=== PATIENT | male | born 1985 | race Caucasian/White ===

== ENCOUNTER 2020-06-12 13:44 | Outpatient (CLI) | payer OTHER, SELFPAY ==
[2020-06-12 15:11] LABS: SARS-CoV-2 Ag Negative (Negative)
== END 2020-06-12 13:45 | disposition home or self-care (01) ==
LOC: CHSLAB 13:46
PROVIDERS: PCP Family Medicine; Visit Provider Family Medicine
DX: Z20.828 Contact with and (suspected) exposure to other viral communicable diseases (principal)
CPT/HCPCS: 87426

== ENCOUNTER 2020-08-11 09:34 | Outpatient (CLI) | payer OTHER, SELFPAY ==
[2020-08-11 10:26] LABS: SARS-CoV-2 Ag Negative (Negative)
[2020-08-11 10:27] LABS: Influenza Control Valid (Valid)
[2020-08-12 00:37] LABS: SARS-CoV-2 RNA PCR Negative
== END 2020-08-11 09:35 | disposition home or self-care (01) ==
PROVIDERS: PCP Family Medicine; Visit Provider Family Medicine
DX: U07.1 COVID-19 (principal); J00 Acute nasopharyngitis [common cold]
CPT/HCPCS: 87426; 87804; 87880; C9803; U0003; U0005

== ENCOUNTER 2021-01-17 14:30 | Emergency (ER) | payer OTHER, SELFPAY ==
--- NOTE | ~2021-01-17 | CT_ITS ---
EXAMINATION: CT soft tissue neck w con DATE: 01/17/2021 15:56 INDICATION: Dysphagia. Right neck mass. TECHNIQUE: Computed tomography (CT) of the neck was performed with 75 mL Omnipaque-350 intravenous co ntrast. The dose-length product was 547.07 mGy-cm. Automated exposure control and iterative reconstru ction technique were employed. COMPARISON: None FINDINGS: There is a 17 mm lymph node just above the level of the palpable mass indicated by BB. The mucosal and parapharyngeal spaces are symmetric. Paranasal sinuses and mastoids are pneumatized. No a bnormal intracranial vascularity identified. Thyroid gland is unremarkable. Lung apices are normal. N o significant vascular abnormality. IMPRESSION: 1. Mild right cervical lymphadenopathy corresponding to the palpable finding, likely reactive. Reviewed, dictated and finalized at location A. IMPRESSION: 1. Mild right cervical lymphadenopathy corresponding to the palpable finding, l ikely reactive.
[2021-01-17 14:35] VITALS: BP 126/85; PULSE 86; RESP 17; TEMP 36.9; O2SAT 99
--- NOTE | 2021-01-17 14:59 | ED.NECK ---
HPI - Neck Pain/Injury General Chief Complaint: Upper Respiratory Infection Stated Complaint: lump in throat Time Seen by Provider: 01/17/21 14:40 Source: patient Mode of arrival: ambulatory Limitations: no limitations History of Present Illness HPI Narrative: Patient comes in after having several days of difficulty swallowing, and pain with swallowing. He has been seen by his primary care doctor before and treated for what was probably just felt to be some enlarged tender nodes in his right neck with amoxicillin. This seemed to help then. He has had a recurrent sense of a object, or fullness in the right neck and has had odynophagia, and dysphagia ongoing for the past few days, which seems to be increasing in severity over the past few weeks. Father has a history of throat cancer. MD complaint: neck pain Place: home Radiation: right lateral Severity: mild Quality: sharp Duration: other (over weeks) Relieving factors: none Exacerbating factors: swallowing Associated symptoms: none Treatments prior to arrival: other (he has purposely exposed himself to radiation at his job site with the hope that would help his neck feel better) Related Data Allergies Allergy/AdvReac Type Severity Reaction Status Date / Time Penicillins Allergy Mild Unverified 01/04/21 08:30 Review of Systems Constitutional: Constitutional: Reports no additional constitutional complaints Eyes: Eyes: Reports no additional eye complaints ENT: Reports system reviewed and no additional complaints, except as documented Cardiovascular: Cardiovascular: Reports no additional cardiovascular complaints Respiratory: Respiratory: Reports no additional respiratory complaints Gastrointestinal: Gastrointestinal: Reports no additional gastrointestinal complaints Genitourinary: Genitourinary: Reports no additional male genitourinary complaints Musculoskeletal: Musculoskeletal: Reports no additional musculoskeletal complaints Integumentary/Breasts: Skin/Breast: Reports system reviewed and no additional complaints, except as docu Neurologic: Reports system reviewed and no additional complaints, except as documented Psychiatric: Psychiatric: Reports no additional psychiatric complaints Endocrine: Endocrine: Reports no additional endocrine complaints Hematologic/Lymphatic: Hematologic/Lymphatic: Reports no additional hematologic/lymphatic complaints Allergic/Immunologic: Allergic/Immunologic: Reports no additional allergic/immunologic complaints [facility] Past Medical History Medical History (Updated 01/17/21 @ 16:24 by Mark Granda MD) No significant past medical history Surgical History Surgical History (Updated 01/17/21 @ 15:20 by Mark Granda MD) History of appendectomy Family History Family History (Updated 01/17/21 @ 15:20 by Mark Granda MD) Father Throat cancer Social History Social History (Updated 01/17/21 @ 15:21 by Mark Granda MD) Tobacco type: e-cigarettes/vaping Alcohol intake: current Alcohol use details: beer at times Gender identity (if verbalized by the patient): Male Sexual Orientation (if Verbalized by the Patient): Straight or Heterosexual Exam Const: General: no acute distress and alert Orientation/consciousness: patient oriented x3 HENMT: Head: normal to inspection and contusion Ears: external ears normal and TM's normal bilaterally General nose exam: Normal external nose present Mouth: Yes Normal oral and palatal mucosa present Throat: posterior oropharynx normal Eyes: Conjunctivae: conjunctivae normal Neck: Neck: normal visual inspection Carotids: normal carotid upstroke Other: He appears tender in the angle of the jaw below the mandible on the right side. I cannot feel any nodes in this area, or elsewhere on his head or neck. He appears to have pain with turning the neck to the left side. Chest: Chest palpation & inspection: normal inspection of the chest Resp: Effort & Inspection: normal
[2021-01-17 15:24] LABS: Basophils Absolute Auto 0.04 K/mm3 (0.00-0.10); Basophils Percent Auto 0.4 % (0.0-1.0); Eosinophils Absolute Auto 0.54 K/mm3 (0.02-0.50); Hemoglobin 14.6 g/dL (14.0-18.0); Immature Granulocyte Absolute 0.03 K/mm3 (0.00-0.00); Immature Granulocyte Percent A 0.3 % (0.0-0.0); Lymphocytes Absolute Auto 2.57 K/mm3 (1.10-4.50); Lymphocytes Percent Auto 28.3 % (18.0-42.0); Mean Corpuscular Hemoglobin 29.6 pg (27.0-31.0); Mean Platelet Volume 11.3 fl (8.7-11.0); Monocytes Absolute Auto 0.64 K/mm3 (0.10-0.90); Monocytes Percent Auto 7.1 % (2.0-11.0); Neutrophils Absolute Auto 5.3 K/mm3 (1.7-7.2); Neutrophils Percent Auto 57.9 % (50.0-70.0); Platelet Count Result 279 K/mm3 (150-420); Red Blood Count 4.94 M/mm3 (4.70-6.10); Red Cell Distribution Width 13.2 % (11.6-14.4); White Blood Count 9.1 K/mm3 (4.8-10.8)
[2021-01-17 15:41] LABS: Alanine Aminotransferase 89 U/L (16-63); Albumin Level 3.9 g/dL (3.4-5.0); Alkaline Phosphatase 59 U/L (46-116); Anion Gap 14 mmol/L (8-16); Aspartate Amino Transferase 35 U/L (15-37); Bilirubin,Total 0.6 mg/dL (0.00-1.00); Blood Urea Nitrogen 13 mg/dL (7-18); Calcium 8.9 mg/dL (8.5-10.1); Carbon Dioxide 24 mmol/L (21-32); Chloride 104 mmol/L (98-108); Estimated Glomerular Filt Rate > 60; Glucose 102 mg/dL (70-99); Osmolality Calculated 294 mOsm/kg (285-295); Potassium 4.1 mmol/L (3.5-5.1); Prothrombin Time 10.8 Seconds (9.50-12.10); Sodium 142 mmol/L (136-145); Total Protein 7.3 g/dL (6.4-8.2)
[2021-01-17] MEDS: AMOXICILLIN 500 MG CAPSULE PO (16:31)
[2021-01-17 16:35] VITALS: RESP 15
== END 2021-01-17 16:35 | disposition home or self-care (01) ==
PROVIDERS: Emergency Provider Emergency Medicine; PCP Family Medicine
DX: I88.9 Nonspecific lymphadenitis, unspecified (principal)
CPT/HCPCS: 36415; 70491; 80053; 85025; 85610; 85730; 99283; 99284; A9270; Q9967

== ENCOUNTER 2021-02-25 11:00 | Outpatient (CLI) | payer OTHER, SELFPAY ==
[2021-02-25 13:42] LABS: SARS-CoV-2 RNA PCR Negative (Negative)
== END 2021-02-25 11:01 | disposition home or self-care (01) ==
LOC: CHSLAB 11:02
PROVIDERS: PCP Family Medicine; Visit Provider Family Medicine
DX: Z20.822 Contact with and (suspected) exposure to COVID-19 (principal)
CPT/HCPCS: C9803; U0003; U0005

== ENCOUNTER 2021-03-05 13:49 | Inpatient (IN) | payer OTHER, SELFPAY ==
--- NOTE | ~2021-03-05 | CT_ITS ---
EXAMINATION: CTA chest PE protocol DATE: 03/05/2021 15:18 INDICATION: Severe shortness of breath. Elevated d-dimer. Covid-positive. Body aches. Headache. TECHNIQUE: Computed tomography angiography (CTA) of the chest was performed with 100 mL Omnipaque-350 intravenous contrast timed to evaluate the pulmonary arteries. Coronal maximum intensity projection 3D-reconstructions were created by the technologist. Automated exposure control and iterative reconst ruction technique were employed. Exam dose: 381.97 mGy-cm total exam DLP. COMPARISON: None. FINDINGS: There is diagnostic contrast enhancement of the pulmonary arteries and no evidence of pulmo nary embolism. Normal heart size. No pericardial effusion. No thoracic aortic aneurysm or dissection. Normal heart size. There is mild prominence of the hilar lymph nodes, likely reactive. There are scattered bilateral patchy groundglass infiltrates in the upper lobes, middle lobe and mor e prominent infiltrates in the lower lobes, particularly in the dependent aspect of the lower lobes. No pleural effusion. No suspicious osteolytic or osteoblastic lesions. IMPRESSION: No evidence of pulmonary embolism Bilateral multifocal pulmonary infiltrates, likely due to Covid 19 pneumonia Reviewed, dictated and finalized at [facility]. Reviewed, dictated and finalized at location A.
--- NOTE | ~2021-03-05 | XR_ITS ---
EXAMINATION: XR chest 1V portable EXAM DATE: 03/08/2021 10:36 INDICATION: Follow-up COVID pneumonia. TECHNIQUE: Portable AP frontal chest x-ray was obtained. Correlation is made to CT pulmonary scan 02/08. FINDINGS: Small to moderate amount of bilateral airspace disease, nonspecific by CT but given history probably COVID pneumonia. Probably no significant interval change correlating to recent chest CT. No pneumothorax or pleural effusion. Cardiomediastinal silhouette is normal. There are no osseous abnor malities identified. IMPRESSION: Moderate amount bilateral airspace disease. Reviewed, dictated and finalized at location B.
[2021-03-05 13:49] VITALS: BP 129/82; PULSE 112; RESP 11; TEMP 36.6; O2SAT 99
--- NOTE | 2021-03-05 13:55 | ECG_ITS ---
Measurements Intervals Slemp Rate: 105 P: 48 WY: 146 QRS: 7 QRSD: 92 T: 41 QT: 307 QTc: 406 Interpretive Statements SINUS TACHYCARDIA BORDERLINE ECG Electronically Signed On 03-05-2021 14:29:24 CDT by Kimani Navarro D.O.
[2021-03-05 14:24] LABS: Base Excess ABG 0.8 mmol/L (0-2); HCO3 ABG 23.4 mmol/L (23-29); Oxygen Content ABG 19.8 %vol (16.0-22.0); Oxygen Saturation ABG 98.5 % (95-97); Oxyhemoglobin 97.8 % (94-100); PCO2 ABG 31.8 mmHg (35-45); PO2 ABG 142.2 mmHg (80-90); Total Hemoglobin 14.2 g/dL (12.0-18.0); pH ABG 7.49 (7.35-7.45)
[2021-03-05 14:25] LABS: Basophils Absolute Auto 0.01 K/mm3 (0.00-0.10); Basophils Percent Auto 0.2 % (0.0-1.0); Hematocrit 40.1 % (40.0-54.0); Hemoglobin 13.3 g/dL (14.0-18.0); Immature Granulocyte Absolute 0.01 K/mm3 (0.00-0.00); Immature Granulocyte Percent A 0.2 % (0.0-0.0); Lymphocytes Percent Auto 17.3 % (18.0-42.0); Mean Corpuscular HGB Conc 33.2 g/dL (32.0-36.0); Mean Corpuscular Hemoglobin 28.9 pg (27.0-31.0); Mean Corpuscular Volume 87.2 fL (78.0-102.0); Mean Platelet Volume 10.3 fl (8.7-11.0); Monocytes Absolute Auto 0.19 K/mm3 (0.10-0.90); Monocytes Percent Auto 4.7 % (2.0-11.0); Neutrophils Absolute Auto 3.1 K/mm3 (1.7-7.2); Neutrophils Percent Auto 77.6 % (50.0-70.0); Platelet Count Result 137 K/mm3 (150-420); Red Cell Distribution Width 12.9 % (11.6-14.4)
[2021-03-05 14:26] LABS: Device NON-REBREATHER MASK; Modified Allen's Test Pass; Site Drawn RIGHT RADIAL
--- NOTE | 2021-03-05 14:26 | ED.GENADULT ---
HPI - General Adult General Chief complaint: Upper Respiratory Infection Stated complaint: Ambulance Source: patient Mode of arrival: ambulatory Limitations: no limitations History of Present Illness HPI narrative: Gautam is a previously healthy 36M that was brought to the ED today with SOB. He was diagnosed with COVID 7 days ago and had only mild symptoms at that time (headache, body aches fatigue, sore throat). However, today all of a sudden he had severe SOB. He denies CP, syncope, N/V, and abdominal pain but admits fever and aches. Related Data Home Medications Medication Instructions Recorded Confirmed No Home Medications 03/05/21 03/05/21 Allergies Allergy/AdvReac Type Severity Reaction Status Date / Time Penicillins Allergy Mild Unknown Verified 03/05/21 16:46 Review of Systems Constitutional: Constitutional: Reports as per HPI Eyes: Eyes: Reports no additional eye complaints ENT: Reports as per HPI Cardiovascular: Cardiovascular: Reports as per HPI Respiratory: Respiratory: Reports as per HPI Gastrointestinal: Gastrointestinal: Reports no additional gastrointestinal complaints Genitourinary: Genitourinary: Reports no additional male genitourinary complaints Musculoskeletal: Musculoskeletal: Reports myalgias Integumentary/Breasts: Skin/Breast: Reports system reviewed and no additional complaints, except as docu Neurologic: Reports system reviewed and no additional complaints, except as documented Psychiatric: Psychiatric: Reports no additional psychiatric complaints Endocrine: Endocrine: Reports no additional endocrine complaints Hematologic/Lymphatic: Hematologic/Lymphatic: Reports no additional hematologic/lymphatic complaints Allergic/Immunologic: Allergic/Immunologic: Reports no additional allergic/immunologic complaints [facility] Past Medical History Medical History No significant past medical history Surgical History Surgical History History of appendectomy Family History Family History Father Throat cancer Social History Social History Smoking status: Never smoker Tobacco type: e-cigarettes/vaping Second hand tobacco smoke exposure: No Alcohol intake: unknown Alcohol use details: beer at times Substance use: unknown Gender identity (if verbalized by the patient): Male Sexual Orientation (if Verbalized by the Patient): Straight or Heterosexual Spiritual care concerns: No Exam Const: General: alert; No confusion Orientation/consciousness: patient oriented x3 Other: Moderate distress HENMT: Head: normal to inspection Mouth: Yes Normal oral and palatal mucosa present Other: atraumatic Eyes: Conjunctivae: conjunctivae normal Pupils: Equal, round and reactive pupils present EOM: EOMs intact bilaterally Neck: Neck: normal visual inspection Chest: Chest palpation & inspection: normal inspection of the chest Resp: Effort & Inspection: labored, no retractions, tachypneic and uses accessory muscles Auscultation: clear to auscultation bilaterally Cardio: Rate: tachycardic Rhythm: regular rhythm Heart sounds: no murmurs GI: Inspection: non-distended GI Palp: Yes Soft to palpation, No Tenderness to palpation present (GI) and No Guarding due to palpation present (GI) Back/Spine/Pelvis: Back: no CVA tenderness Skin: General skin exam: normal color Rashes: no rashes Neuro: General: patient oriented x3 and moves all extremities Psych: Appearance: grossly normal Mental Status: mental status grossly normal Thought content: Yes Normal thought content present Course Course Emergency Course: Gautam was evaluated. Ordered labs, CT and EKG. He is satting int he 90's on 12L non-rebreather but is now on 7L NC satting 97%. EKG s
[2021-03-05 14:36] LABS: INR 1.1; Prothrombin Time 11.3 Seconds (9.50-12.10)
[2021-03-05 14:40] LABS: Lactic Acid Reflex 2.2 mmol/L (0.4-2.0)
[2021-03-05 14:48] LABS: Alanine Aminotransferase 52 U/L (16-63); Albumin Level 3.3 g/dL (3.4-5.0); Alkaline Phosphatase 42 U/L (46-116); Anion Gap 11 mmol/L (8-16); Aspartate Amino Transferase 34 U/L (15-37); Bilirubin,Total 0.2 mg/dL (0.00-1.00); Blood Urea Nitrogen 13 mg/dL (7-18); Calcium 8.5 mg/dL (8.5-10.1); Carbon Dioxide 23 mmol/L (21-32); Chloride 105 mmol/L (98-108); Estimated Glomerular Filt Rate > 60; Glucose 137 mg/dL (70-99); NT Pro B Type Natriuretic Pept 33 pg/mL (0-125); Osmolality Calculated 290 mOsm/kg (285-295); Potassium 3.9 mmol/L (3.5-5.1); Sodium 139 mmol/L (136-145)
[2021-03-05 14:49] LABS: CRP 3.9 mg/dL (0.0-0.9); Lipase 147 U/L (73-393); Magnesium 1.7 mg/dL (1.8-2.4); Thyroid Stimulating Hormone 0.43 uIU/mL (0.36-3.74)
--- NOTE | 2021-03-05 16:04 | PC.NURSE ---
room request from jomar edmond rn. room 212 provided. registration notified
[2021-03-05 16:54] VITALS: PULSE 90; RESP 18; O2SAT 98
[2021-03-05 17:00] VITALS: BP 126/81; PULSE 95; RESP 20; O2SAT 99
[2021-03-05] MEDS: DEXAMETHASONE 2 MG TABLET 6 MG PO (17:00)
--- NOTE | 2021-03-05 17:06 | PC.NURSE ---
pt requesting dinner tray from cafeteria. rn attempted to call dietary/kitchen with no answer. pt contacted admission discharge rn, mayito, to inform her that pt needs a meal tray.
--- NOTE | 2021-03-05 17:08 | PC.NURSE ---
mayito, rn informed that rn was not able to start ivf medication in ed due to unavailability, erp approved medication to be started when arrive to room 212.
[2021-03-05 17:15] VITALS: O2SAT 95
--- NOTE | 2021-03-05 17:17 | PC.NURSE ---
Patient admitted to room 212 from ED as inpatient for covid pneumonia after testing positive 02/26/2021. Patient presented to ED via EMT for severe SOB.
[2021-03-05 17:21] LABS: Reflex Lactic Acid Yes or No Add Lactic
[2021-03-05] MEDS: REMDESIVIR 200 MG/NS 250 ML 200 MG/250 ML BAG 250 MG IVPB (18:04)
[2021-03-05 18:07] VITALS: BP 130/77; PULSE 106; PULSE 90; RESP 18; TEMP 37; O2SAT 98
[2021-03-05 18:17] VITALS: BMI 28.8
[2021-03-05 20:00] VITALS: BP 118/69; PULSE 104; PULSE 113; RESP 20; TEMP 37.8; O2SAT 94
[2021-03-05] MEDS: HYDROcodone/acetaminophen (*CRX) 5-325 MG TABLET 1 TAB PO (20:27)
[2021-03-05] MEDS: ENOXAPARIN 40 MG/0.4 ML SYRINGE SUB-Q (20:28)
--- NOTE | 2021-03-05 22:10 | PC.NURSE ---
patient rounding completed. Patient requested that the thermostat be turned down, as he was getting hot. Thermostat was adjusted. Patient did not need anything else at this time.
[2021-03-06] VITALS: BP 113/65; PULSE 75; PULSE 77; RESP 20; TEMP 36.4; O2SAT 96
[2021-03-06] MEDS: HYDROcodone/acetaminophen (*CRX) 5-325 MG TABLET 1 TAB PO ×4 (01:02→19:07)
--- NOTE | 2021-03-06 02:05 | PC.NURSE ---
Completed patient rounding. Patient woke up, and stated that he did not need anything at this time.
[2021-03-06 04:00] VITALS: BP 119/69; PULSE 72; PULSE 74; RESP 20; TEMP 36.1; O2SAT 95
--- NOTE | 2021-03-06 04:10 | PC.NURSE ---
Patient rounding completed. Patient was sleeping comfortably in his bed.
[2021-03-06 05:30] VITALS: O2SAT 94
[2021-03-06 06:33] LABS: Hematocrit 40.1 % (40.0-54.0); Hemoglobin 13.7 g/dL (14.0-18.0); Mean Corpuscular HGB Conc 34.2 g/dL (32.0-36.0); Mean Corpuscular Hemoglobin 29.8 pg (27.0-31.0); Mean Corpuscular Volume 87.4 fL (78.0-102.0); Mean Platelet Volume 10.1 fl (8.7-11.0); Platelet Count Result 160 K/mm3 (150-420); Red Blood Count 4.59 M/mm3 (4.70-6.10); Red Cell Distribution Width 12.8 % (11.6-14.4); White Blood Count 2.8 K/mm3 (4.8-10.8)
[2021-03-06 06:47] LABS: INR 1.1; Prothrombin Time 11.5 Seconds (9.50-12.10)
[2021-03-06 06:49] LABS: Alanine Aminotransferase 55 U/L (16-63); Albumin Level 3.3 g/dL (3.4-5.0); Alkaline Phosphatase 40 U/L (46-116); Anion Gap 9 mmol/L (8-16); Aspartate Amino Transferase 31 U/L (15-37); Bilirubin,Total 0.4 mg/dL (0.00-1.00); Blood Urea Nitrogen 16 mg/dL (7-18); Calcium 8.5 mg/dL (8.5-10.1); Carbon Dioxide 26 mmol/L (21-32); Chloride 104 mmol/L (98-108); Estimated CRCL calculation 102 ml/min; Estimated Glomerular Filt Rate > 60; Glucose 128 mg/dL (70-99); Osmolality Calculated 291 mOsm/kg (285-295); Potassium 4.2 mmol/L (3.5-5.1); Sodium 139 mmol/L (136-145); Total Protein 7.3 g/dL (6.4-8.2)
[2021-03-06 06:57] LABS: Band Neutrophils Percent 1 % (0-6); Basophils Percent Manual 0 % (0-1); Eosinophils Percent Manual 0 % (1-6); Lymphocytes Absolute Manual 0.81 K/mm3 (1.1-4.5); Lymphocytes Percent Manual 29 % (18-44); Monocytes Absolute Manual 0.16 K/mm3 (0.1-0.90); Monocytes Percent Manual 6 % (3-9); Neutrophils Absolute Manual 1.82 K/mm3 (1.3-6.7); Neutrophils Percent Manual 64 % (46-73); Total Cells Counted 100
[2021-03-06 06:58] LABS: Platelet Estimate Adequate (Adequate)
[2021-03-06 07:55] VITALS: BP 130/77; PULSE 74; RESP 18; TEMP 36.2; O2SAT 95
[2021-03-06 08:00] VITALS: PULSE 74
[2021-03-06] MEDS: REMDESIVIR 100 MG/NS 250 ML 100 MG/250 ML BAG 250 MG IVPB (09:19)
--- NOTE | 2021-03-06 10:09 | PM.IMHP ---
H&P: HPI History of Present Illness Date/Time: 03/06/21 10:09 Chief Complaint: Shortness of breath Narrative: This is a 36-year-old male presents to emergency department yesterday with a complaint of shortness of breath. Patient does not have any significant past medical. According to patient approximately 8 days ago he was diagnosed with Covid and had experience headache, body aches fatigue and a sore throat all of which she treated at home. Yesterday he noted that his temperature was 104 and he started to experience shortness of breath this is when he came to our emergency. Patient is WBCs 4.0, hemoglobin 13.3, hematocrit 40.1 platelets 137, blood gas pH 7.49 PCO2 31.8 PO2 142.2 bicarb 23.4 on 13 L number, sodium 139, potassium 3.9, BUN 13, creatinine 0.94, lactic acid 2.2, magnesium 1.7, liver function test within normal limits troponin 7.0 CRP 3.9, CTA negative for PE but indicates Covid pneumonia EKG sinus tach with a heart rate of 105, patient continues to have shortness of breath with uncontrollable cough. He has been admitted for treatment of COVID-19 pneumonia. The patient denies CP, palpitation, extremity numbness, lightheadedness, dizziness, constipation, diarrhea, chills, or fever. Patient has not been vaccinated. Review of Systems Review of Systems: A 14 organ system Review of Systems was performed and pertinent positives included in the HPI, otherwise remaining ROS is negative. [facility] Past Medical History Medical History No significant past medical history Surgical History Surgical History History of appendectomy Family History Family History Father Throat cancer Social History Social History Smoking status: Never smoker Tobacco type: e-cigarettes/vaping Second hand tobacco smoke exposure: No Alcohol intake: unknown Alcohol use details: beer at times Substance use: unknown Gender identity (if verbalized by the patient): Male Sexual Orientation (if Verbalized by the Patient): Straight or Heterosexual Spiritual care concerns: No Meds Home Medications and Allergies Home Medications Medication Instructions Recorded Confirmed Type No Home Medications 03/05/21 03/05/21 History Allergies Allergy/AdvReac Type Severity Reaction Status Date / Time Penicillins Allergy Mild Unknown Verified 03/05/21 16:46 Vital Signs Vital Signs - 24 hr 03/05/21 13:49 03/05/21 16:54 03/05/21 17:00 Temperature 98 F Pulse Rate 112 H 90 95 Respiratory Rate 11 L 18 20 Blood Pressure 129/82 126/81 Pulse Oximetry 99 98 99 03/05/21 18:07 03/05/21 20:00 03/06/21 00:00 Temperature 98.6 F 100.1 F H 97.5 F L Pulse Rate 90 104 H 75 Respiratory Rate 18 20 20 Blood Pressure 130/77 118/69 113/65 Pulse Oximetry 98 94 96 03/06/21 04:00 Temperature 96.9 F L Pulse Rate 74 Respiratory Rate 20 Blood Pressure 119/69 Pulse Oximetry 95 Exam Narrative: GENERAL: This is a well-nourished, well-developed patient, in no apparent distress. HEAD: normocephalic, atraumatic. EYES: PERRL. Sclera clear/white. Vision is grossly intact. EARS: External ears normal, auditory canals clear and without drainage, TMs normal without perforation. Hearing grossly intact. NOSE: External nose normal with no obvious nasal discharge, nares without redness, no rhinorrhea. THROAT: Mucous membranes moist, posterior pharynx clear. NECK: Neck supple, non-tender without lymphadenopathy, masses or thyromegaly. CARDIOVASCULAR: Regular rate and rhythm without murmurs, gallops, or rubs. RESPIRATORY: Diminished breath sounds GASTROINTESTINAL: Abdomen soft, non-tender, nondistended. Bowel sounds are active. No hepato-splenomegaly, or palpable masses. No guarding. SKIN: warm, intact with no suspicious lesions or r
[2021-03-06] MEDS: BENZONATATE 100 MG CAPSULE 200 MG PO ×2 (12:19→17:06)
[2021-03-06] MEDS: ALBUTEROL SULFATE (*SP) INHALER 2 PUFF INHALATION ×2 (14:40→20:12)
[2021-03-06] MEDS: MAGNESIUM OXIDE 400 MG TABLET PO (14:41)
[2021-03-06 16:40] VITALS: BP 138/69; PULSE 63; RESP 18; TEMP 36.1; O2SAT 97
[2021-03-06] MEDS: BUDESONIDE/FORMOTEROL (*SP) 160-4.5 MCG 6 GM INH 2 PUFF INHALATION (17:50)
--- NOTE | 2021-03-06 19:00 | PC.NURSE ---
Completed bedside report. Patient stated he needed pain medication. He rated his body aches at a 6/10. Patient was alert and stated he did not need anything else at this time.
[2021-03-06] MEDS: ENOXAPARIN 40 MG/0.4 ML SYRINGE SUB-Q (20:13)
[2021-03-06] MEDS: guaiFENesin 12 HR 600 MG TABCR 1200 MG PO (20:13)
--- NOTE | 2021-03-06 22:10 | PC.NURSE ---
Patient rounding completed. Changed bedding while patient showered. Patient indicated very tired after shower. Will check again in a few minutes to make sure he is recovers to baseline comfort.
--- NOTE | 2021-03-06 22:45 | PC.NURSE ---
Patient states that he is feeling much better. He needed time to rest, to regain his strength. Patient is resting in bed comfortably, and does not need anything else at this time.
[2021-03-07] VITALS: BP 108/71; PULSE 66; RESP 20; TEMP 36.4; O2SAT 96
[2021-03-07] MEDS: HYDROcodone/acetaminophen (*CRX) 5-325 MG TABLET 1 TAB PO ×5 (00:04→23:44)
--- NOTE | 2021-03-07 01:00 | PC.NURSE ---
Completed patient rounding. Patient was sleeping comfortably in bed, with no signs of pain or discomfort.
--- NOTE | 2021-03-07 02:00 | PC.NURSE ---
Completed patient rounding. Patient was sleeping comfortably in bed, with no signs of pain or discomfort.
--- NOTE | 2021-03-07 04:00 | PC.NURSE ---
Completed patient rounding. Patient is sleeping comfortably in bed, with no sign of pain or discomfort.
[2021-03-07 05:30] VITALS: O2SAT 96
[2021-03-07 05:50] LABS: INR 1.1; Prothrombin Time 11.2 Seconds (9.50-12.10)
[2021-03-07 05:56] LABS: Alanine Aminotransferase 52 U/L (16-63); Alkaline Phosphatase 37 U/L (46-116); Anion Gap 8 mmol/L (8-16); Aspartate Amino Transferase 31 U/L (15-37); Bilirubin,Total 0.3 mg/dL (0.00-1.00); Blood Urea Nitrogen 17 mg/dL (7-18); Carbon Dioxide 28 mmol/L (21-32); Chloride 105 mmol/L (98-108); Estimated CRCL calculation 108 ml/min; Estimated Glomerular Filt Rate > 60; Glucose 100 mg/dL (70-99); Osmolality Calculated 293 mOsm/kg (285-295); Potassium 3.8 mmol/L (3.5-5.1); Sodium 141 mmol/L (136-145); Total Protein 6.7 g/dL (6.4-8.2)
[2021-03-07 06:01] LABS: Lactic Acid Reflex 1.2 mmol/L (0.4-2.0)
[2021-03-07] MEDS: ALBUTEROL SULFATE (*SP) INHALER 2 PUFF INHALATION ×4 (06:24→20:55)
[2021-03-07] MEDS: BUDESONIDE/FORMOTEROL (*SP) 160-4.5 MCG 6 GM INH 2 PUFF INHALATION ×2 (06:25→19:28)
--- NOTE | 2021-03-07 07:47 | WPDPN ---
Progress Note: A&P Assessment and Plan (1) 2019 novel coronavirus-infected pneumonia (NCIP): Code(s): U07.1 - COVID-19; J12.82 - Pneumonia due to coronavirus disease 2019 Status: Acute Assessment and Plan: Patient tested positive for Covid 8 days ago Will continue dexamethasone and remdesivir Continue albuterol and Symbicort Continue supplement oxygen Will possibly need home to eval (2) Tachycardia: Code(s): R00.0 - Tachycardia, unspecified Status: Acute Assessment and Plan: Resolved Secondary to Covid pneumonia and shortness of breath (3) Electrolyte imbalance: Code(s): E87.8 - Other disorders of electrolyte and fluid balance, not elsewhere classified Status: Acute Assessment and Plan: Magnesium 1.7>wnl Supplement given (4) Elevated lactic acid level: Code(s): R79.89 - Other specified abnormal findings of blood chemistry Status: Acute Assessment and Plan: Resolved Secondary to Covid Will repeat in the a.m. Lactic 2.1>1.2 Subjective Date/time seen: 03/07/21 07:47 patient notes that yesterday after taking a shower he experienced some dizziness with nausea and describes it as just feeling bad, he has also experienced body aches. Patient is still requiring oxygen and has experienced shortness of breath on occasions. The patient denies CP, palpitation, extremity numbness, lightheadedness, dizziness, constipation, diarrhea, chills, or fever. Patient agrees that he should remain here and be reevaluated tomorrow. A home O2 evaluation will probably be ordered for tomorrow. Review of Systems Review of Systems: A 14 organ system Review of Systems was performed and pertinent positives included in the HPI, otherwise remaining ROS is negative. Exam Narrative: GENERAL: This is a well-nourished, well-developed patient, in no apparent distress. HEAD: normocephalic, atraumatic. EYES: PERRL. Sclera clear/white. Vision is grossly intact. EARS: External ears normal, auditory canals clear and without drainage, TMs normal without perforation. Hearing grossly intact. NOSE: External nose normal with no obvious nasal discharge, nares without redness, no rhinorrhea. THROAT: Mucous membranes moist, posterior pharynx clear. NECK: Neck supple, non-tender without lymphadenopathy, masses or thyromegaly. CARDIOVASCULAR: Regular rate and rhythm without murmurs, gallops, or rubs. RESPIRATORY: Diminished breath sounds GASTROINTESTINAL: Abdomen soft, non-tender, nondistended. Bowel sounds are active. No hepato-splenomegaly, or palpable masses. No guarding. SKIN: warm, intact with no suspicious lesions or rash, good texture and turgor. NEURO: awake, alert, and oriented to person, place and time. There were no obvious focal neurologic abnormalities. Steady gait EXTREMITIES: Normal range of motion. No edema. No calf tenderness. Negative Homans sign bilaterally. BACK: Nontender without deformity or crepitance. No flank tenderness. Objective Data Vital Signs Vital Signs: Vital Signs - 24 hr 03/06/21 07:55 03/06/21 08:00 03/06/21 16:40 Temperature 97.2 F L 97 F L Pulse Rate 74 74 63 Respiratory Rate 18 18 Blood Pressure 130/77 138/69 Pulse Oximetry 95 97 03/07/21 00:00 Temperature 97.6 F Pulse Rate 66 Respiratory Rate 20 Blood Pressure 108/71 Pulse Oximetry 96 Intake/Output Intake/Output: Intake & Output 03/04/21 03/05/21 03/06/21 03/07/21 23:59 23:59 23:59 23:59 Intake Total 550 2240 550 Output Total 1450 Balance 550 790 550 Meds/Results Medications: Active Medications Generic Name Dose Route Start Last Admin Trade Name Freq PRN Reason Stop Dose Admin Acetaminophen 650 mg 03/05/21 16:53 Acetaminophen 325 Mg Tablet PO Q4H PRN Mild Pain (1-3) or Fever Hydrocodone Bitart/Acetaminophen 1 tab 03/05/21 16:53 03/07/21 05:15 Hydrocodone/Acetaminophen (*Crx) 5-325 Mg Tablet PO 1 tab Q4H PRN Administra
[2021-03-07 08:00] VITALS: BP 112/59; PULSE 73; RESP 16; TEMP 36.2; O2SAT 92
[2021-03-07] MEDS: REMDESIVIR 100 MG/NS 250 ML 100 MG/250 ML BAG 250 MG IVPB (09:30)
[2021-03-07] MEDS: BENZONATATE 100 MG CAPSULE 200 MG PO ×2 (09:31→16:08)
[2021-03-07] MEDS: MAGNESIUM OXIDE 400 MG TABLET PO (09:31)
[2021-03-07] MEDS: guaiFENesin 12 HR 600 MG TABCR 1200 MG PO ×2 (09:32→20:55)
[2021-03-07 16:00] VITALS: BP 119/64; PULSE 62; RESP 16; TEMP 36.2; O2SAT 96
--- NOTE | 2021-03-07 19:00 | PC.NURSE ---
Completed bedside report. Patient indicated that he was doing okay for pain, but was feeling a little off . When asked if he was nauseous, he stated yes. Patient also requested more ice water. Patient was given zofran, 4 mg IV, his inhaler that was due at 1830, and his ice water. Patient's dinner tray was also removed.
[2021-03-07] MEDS: ONDANSETRON INJ 4 MG/2 ML VIAL IV PUSH (19:29)
[2021-03-07 20:00] VITALS: PULSE 87; RESP 20; O2SAT 94
--- NOTE | 2021-03-07 22:00 | PC.NURSE ---
Completed patient rounding. Patient is sleeping comfortably in his bed, with no signs of pain or discomfort.
[2021-03-08] VITALS (7 sets, daily range): BP systolic 111–123; BP diastolic 67–72; PULSE 75–106; RESP 16–18; TEMP 36.2–36.7; O2SAT 86–95
--- NOTE | 2021-03-08 02:20 | PC.NURSE ---
Completed patient rounding. Patient is sleeping comfortably in bed with no signs of pain or discomfort.
[2021-03-08 06:15] LABS: Hematocrit 38.4 % (40.0-54.0); Hemoglobin 12.6 g/dL (14.0-18.0); Mean Corpuscular HGB Conc 32.8 g/dL (32.0-36.0); Mean Corpuscular Volume 88.3 fL (78.0-102.0); Mean Platelet Volume 10.2 fl (8.7-11.0); Platelet Count Result 196 K/mm3 (150-420); Red Blood Count 4.35 M/mm3 (4.70-6.10); Red Cell Distribution Width 12.9 % (11.6-14.4); White Blood Count 6.2 K/mm3 (4.8-10.8)
[2021-03-08 06:24] LABS: Prothrombin Time 11.1 Seconds (9.50-12.10)
[2021-03-08 06:29] LABS: Anion Gap 7 mmol/L (8-16); Blood Urea Nitrogen 13 mg/dL (7-18); Carbon Dioxide 29 mmol/L (21-32); Chloride 107 mmol/L (98-108); Estimated CRCL calculation 116 ml/min; Estimated Glomerular Filt Rate > 60; Glucose 85 mg/dL (70-99); Osmolality Calculated 295 mOsm/kg (285-295); Sodium 143 mmol/L (136-145)
[2021-03-08 06:30] LABS: Alanine Aminotransferase 73 U/L (16-63)
[2021-03-08] MEDS: ALBUTEROL SULFATE (*SP) INHALER 2 PUFF INHALATION ×2 (06:34→10:30)
[2021-03-08] MEDS: BUDESONIDE/FORMOTEROL (*SP) 160-4.5 MCG 6 GM INH 2 PUFF INHALATION (06:34)
--- NOTE | 2021-03-08 06:38 | PM.DS ---
DS: Admitting Diagnosis Admitting Diagnosis Covid pneumonia DS: Discharge Diagnosis Discharge Diagnosis (1) 2019 novel coronavirus-infected pneumonia (NCIP): Code(s): U07.1 - COVID-19; J12.82 - Pneumonia due to coronavirus disease 2019 Status: Acute Assessment and Plan: Patient tested positive for Covid 8 days ago Will continue dexamethasone and remdesivir Continue albuterol and Symbicort Continue supplement oxygen Will possibly need home to eval Discharge Patient requires 1 L of nasal cannula at rest and 2 L nasal cannula with ambulation Will continue dexamethasone for 7 days we will also start azithromycin and cefdinir. Continue inhalers (2) Tachycardia: Code(s): R00.0 - Tachycardia, unspecified Status: Acute Assessment and Plan: Resolved Secondary to Covid pneumonia and shortness of breath (3) Electrolyte imbalance: Code(s): E87.8 - Other disorders of electrolyte and fluid balance, not elsewhere classified Status: Acute Assessment and Plan: Magnesium 1.7>wnl Supplement given (4) Elevated lactic acid level: Code(s): R79.89 - Other specified abnormal findings of blood chemistry Status: Acute Assessment and Plan: Resolved Secondary to Covid Will repeat in the a.m. Lactic 2.1>1.2 DS: Summary Hospital Course Reason for hospitalization: Shortness of breath, body aches, febrile, fatigue Hospital Course: This is a 36-year-old male presents to emergency department with a complaint of shortness of breath. Patient does not have any significant past medical. According to patient approximately 8 days ago he was diagnosed with Covid and had experience headache, body aches fatigue and a sore throat all of which he treated at home the day of admission he started to experiencing increased shortness of breath. Patient was treated with remdesivir and dexamethasone his hospital stay home to evaluation patient indicates that he requires 1 L nasal cannula at rest and 2 L nasal cannula with ambulation. Patient still continues to experience shortness of breath. The patient denies that feeling at 1 at night when at rest. No is not ambulating with his walker portable continuous on continuous feeds if he is sitting down is one in the house he did remember sure have been addressed hopefully right, CP, palpitation, extremity numbness, lightheadedness, dizziness, constipation, diarrhea, chills, or fever. Inpatient Time spent 60 minutes Disposition Home with self-care Time Spent with Patient Time attestation: Total time spent providing and/or coordinating discharge services: 60 minutes Exam Narrative: GENERAL: This is a well-nourished, well-developed patient, in no apparent distress. HEAD: normocephalic, atraumatic. EYES: PERRL. Sclera clear/white. Vision is grossly intact. EARS: External ears normal, auditory canals clear and without drainage, TMs normal without perforation. Hearing grossly intact. NOSE: External nose normal with no obvious nasal discharge, nares without redness, no rhinorrhea. THROAT: Mucous membranes moist, posterior pharynx clear. NECK: Neck supple, non-tender without lymphadenopathy, masses or thyromegaly. CARDIOVASCULAR: Regular rate and rhythm without murmurs, gallops, or rubs. RESPIRATORY: Diminished breath sounds GASTROINTESTINAL: Abdomen soft, non-tender, nondistended. Bowel sounds are active. No hepato-splenomegaly, or palpable masses. No guarding. SKIN: warm, intact with no suspicious lesions or rash, good texture and turgor. NEURO: awake, alert, and oriented to person, place and time. There were no obvious focal neurologic abnormalities. Steady gait EXTREMITIES: Normal range of motion. No edema. No calf tenderness. Negative Homans sign bilaterally. BACK: Nontender without deformity or crepitance. No flank tenderness. DS: Data Data Completed and Pending Labs on day of discharge: Labs from last 24 hours 03/08/21 03/08/2102/09
--- NOTE | 2021-03-08 08:28 | HOMEO2EVAL ---
Evaluation was performed at [facility] Home Oxygen Evaluation RC: Home Oxygen (O2) Evaluation Start: 03/08/21 06:38 Freq: ONCE Status: Active Protocol: RPE Activity Type Activity Date Activity User E-Sign Co-Sign Detail Recorded Client Recorded Date Recorded By Document 03/08/21 08:05 SJB [id number] 03/08/21 08:28 SJB Document 03/08/21 08:06 SJB [id number] 03/08/21 08:28 SJB Document 03/08/21 08:08 SJB [id number] 03/08/21 08:28 SJB Document 03/08/21 08:12 SJB [id number] 03/08/21 08:28 SJB 03/08/21 03/08/21 03/08/21 08:05 08:06 08:08 Home O2 Evaluation Test Phase Resting Exercise Exercise Oxygen Delivery Room Air Room Air Nasal Cannula Oxygen Flow Rate (L/min) 1 Pulse Oximetry (90-100 %) 92 87 L 86 L Pulse Rate (60-100 beats/min) 98 102 H 106 H Activity Tolerance Good Rating of Perceived Dyspnea (PD) +1 Mild, Noticeable to the Participant but Not to an Observer Rate of Perceived Exertion (PE) 11 Fairly light 11 Fairly light Ambulation Distance (feet) 40 120 Home Oxygen Evaluation Comments Walked in room due to patient being unable to tolerate an N95 mask. Treatment Charges O2 Evaluation - Inpatient 03/08/21 08:12 Home O2 Evaluation Test Phase Exercise Oxygen Delivery Nasal Cannula Oxygen Flow Rate (L/min) 2 Pulse Oximetry (90-100 %) 90 Pulse Rate (60-100 beats/min) 100 Activity Tolerance Good Rating of Perceived Dyspnea (PD) Rate of Perceived Exertion (PE) 13 Somewhat Hard Ambulation Distance (feet) 200 Home Oxygen Evaluation Comments Pt completed 360 ft on 2 lpm to keep Sp02 at 90%. Treatment Charges
[2021-03-08] MEDS: REMDESIVIR 100 MG/NS 250 ML 100 MG/250 ML BAG 250 MG IVPB (09:54)
[2021-03-08] MEDS: guaiFENesin 12 HR 600 MG TABCR 1200 MG PO (09:55)
[2021-03-08] MEDS: BENZONATATE 100 MG CAPSULE 200 MG PO (09:56)
[2021-03-08] MEDS: MAGNESIUM OXIDE 400 MG TABLET PO (09:56)
[2021-03-08] MEDS: HYDROcodone/acetaminophen (*CRX) 5-325 MG TABLET 1 TAB PO (10:09)
--- NOTE | 2021-03-08 15:23 | PC.NURSE ---
Pt discharged to home in stable condition. Teaching done regarding oxygen safe use and 2 L per hour dose. Discharge teaching completed. Pt verbalized understanding of dishcharge instructions. RN took pt to family car via WC and assisted him in.
--- NOTE | 2021-03-09 11:17 | PC.NURSE ---
Patient called in none of the scripts sent to pharmacy except tramadol, called to [facility] to confirm did not receive scripts, scripts printed from discharge summary and sent via fax to [facility].
== END 2021-03-08 15:10 | disposition home or self-care (01) | DRG 177 ==
LOC: CHSED 13:55 → CHS2ND 16:58
PROVIDERS: Nurse Practitioner; Admitting Provider Family Medicine; Emergency Provider Family Medicine; PCP Family Medicine; Visit Provider Family Medicine
DX: U07.1 COVID-19 (principal); J12.82 Pneumonia due to coronavirus disease 2019; F17.290 Nicotine dependence, other tobacco product, uncomplicated; E87.8 Other disorders of electrolyte and fluid balance, not elsewhere classified
CPT/HCPCS: 36415; 36600; 71045; 71275; 80048; 80053; 82805; 83605; 83690; 83735; 83880; 84443; 84460; 84484; 85025; 85027; 85060; 85380; 85610; 86140; 93005; 94618; 99285; A9270; J1650; J2405; J8540; Q9967

== ENCOUNTER 2022-06-02 12:11 | Emergency (ER) | payer OTHER, SELFPAY ==
--- NOTE | ~2022-06-02 | XR_ITS ---
XR sacrum coccyx min 2V DATE: 06/02/2022 13:08 INDICATION: Back pain radiating to right leg after fall yesterday TECHNIQUE: AP, angled AP and lateral views of sacrum and coccyx COMPARISON: None FINDINGS: No sacral or coccygeal fracture or bone destruction is detected. Mild retrolisthesis at L5-S1. Mild degenerative disc disease at L4-5 and L5-S1. The sacroiliac joints are intact. IMPRESSION: No sacral or coccygeal fracture is detected Mild degenerative disc disease at L4-5 and L5-S1, mild retrolisthesis at L5-S1 Reviewed, dictated and finalized at location A. MUD THICKENER OPERATOR
--- NOTE | ~2022-06-02 | XR_ITS ---
XR lumbar spine 2-3V DATE: 06/02/2022 13:07 INDICATION: Back pain after fall yesterday TECHNIQUE: AP, lateral, coned lateral lumbosacral views COMPARISON: None FINDINGS: There is slight thoracolumbar levoscoliosis. No fracture or bone destruction of the lumbar spine is evident. The included T11-L5 pedicles are inta ct. There is mild degenerative disc disease of the lumbar spine. There is mild retrolisthesis at L5-S1. The sacroiliac joints are intact. IMPRESSION: Mild degenerative disc disease New fracture or bone destruction Reviewed, dictated and finalized at location A. ECTION OFFICER HEAD
[2022-06-02 12:24] VITALS: BP 142/86; PULSE 97; RESP 16; TEMP 36.7; O2SAT 99
[2022-06-02 12:25] VITALS: BP 142/86; PULSE 97; RESP 16; TEMP 36.7; O2SAT 99
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
[2022-06-02] MEDS: CYCLOBENZAPRINE HCL 10 MG TABLET PO (12:39)
[2022-06-02] MEDS: KETOROLAC 30 MG/ML VIAL (*BKC) IM (12:39)
[2022-06-02] MEDS: MORPHINE SULFATE (*CRX) 4 MG/ML INJ IM (13:11)
[2022-06-02 13:46] VITALS: BP 120/87; PULSE 97; RESP 16; TEMP 36.7; O2SAT 98
== END 2022-06-02 13:49 | disposition home or self-care (01) ==
PROVIDERS: Emergency Provider Family Medicine; PCP Family Medicine
DX: M54.9 Dorsalgia, unspecified (principal)
CPT/HCPCS: 72100; 72220; 96372; 99284; A9270; J1885; J2270

== ENCOUNTER 2022-07-10 01:53 | Emergency (ER) | payer OTHER, SELFPAY ==
[2022-07-10 02:18] VITALS: BP 145/89; PULSE 143; RESP 20; TEMP 36.7; O2SAT 93
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
== END 2022-07-10 02:55 | disposition left against medical advice (07) ==
LOC: ANHED 02:59
PROVIDERS: PCP Family Medicine
DX: Z53.21 Procedure and treatment not carried out due to patient leaving prior to being seen by health care provider (principal)
CPT/HCPCS: 99199

== ENCOUNTER 2023-02-06 11:33 | Emergency (ER) | payer OTHER, SELFPAY ==
[2023-02-06 11:34] VITALS: BP 150/87; PULSE 82; RESP 20; TEMP 37; O2SAT 97
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
[2023-02-06] MEDS: ACETAMINOPHEN 500 MG TABLET 1000 MG PO (11:50)
[2023-02-06] MEDS: IBUPROFEN 400 MG TABLET 800 MG PO (11:51)
[2023-02-06] MEDS: traMADol HCL (*CRX) 50 MG TABLET 100 MG PO (11:51)
== END 2023-02-06 12:06 | disposition home or self-care (01) ==
LOC: CHSED 11:57
PROVIDERS: Emergency Provider Emergency Medicine; PCP Family Medicine
DX: S51.032A Puncture wound without foreign body of left elbow, initial encounter (principal); M25.522 Pain in left elbow; F17.219 Nicotine dependence, cigarettes, with unspecified nicotine-induced disorders; W20.8XXA Other cause of strike by thrown, projected or falling object, initial encounter; Y93.I9 Activity, other involving external motion
CPT/HCPCS: 99283; A9270

== ENCOUNTER 2024-03-08 15:45 | Emergency (ER) | payer OTHER, SELFPAY ==
--- NOTE | ~2024-03-08 | CT_ITS ---
EXAMINATION: CT abdomen pelvis wo con DATE: 03/08/2024 16:33 INDICATION: Left flank pain. Constipation. TECHNIQUE: Computed tomography (CT) of the abdomen and pelvis was performed without intravenous contr ast. Automated exposure control and iterative reconstruction technique were employed. The dose-length product was 463.64 mGy-cm. COMPARISON: None. FINDINGS: The visualized portions of lung bases demonstrate mild atelectasis. No pleural effusion. Th e heart size is normal. No pericardial effusion. There is diffuse hepatic steatosis. The gallbladder, spleen, pancreas, and adrenal glands are normal. There is cortical thinning of the kidneys. There is no urolithiasis. There are no dilated loops of bowel. There are changes of appendectomy. There are n o pathologically enlarged lymph nodes. There is no free intraperitoneal fluid. There is moderate lowe r lumbar spondylosis. There is mild chronic anterior wedging of multiple vertebral bodies. IMPRESSION: 1. Diffuse hepatic steatosis. Reviewed, dictated and finalized at location A.
[2024-03-08 15:46] VITALS: BP 161/95; PULSE 86; RESP 18; TEMP 36.4; O2SAT 97
--- NOTE | 2024-03-08 16:18 | ED.ABDPAIN ---
HPI - Abdominal Pain General Chief Complaint: Urogenital-Male Stated Complaint: left side ab. pain Source: patient Mode of arrival: ambulatory Limitations: no limitations History of Present Illness HPI narrative: Patient is a 39-year-old male with left flank pain for the past 2 days. It is migrating from the left back now to the left flank. MD elicited complaint: flank pain ( Left) Pertinent past history: none Onset (ago): day(s) (2) Pain Consistency: constant Location: LLQ and L flank Severity: moderate Pain scale (0-10): 4 Quality: sharp Radiation: L flank Migration to: L flank Exacerbating factors: movement Relieving factors: nothing Associated symptoms: denies other symptoms Related Data Allergies Allergy/AdvReac Type Severity Reaction Status Date / Time Penicillins Allergy Mild Unknown Verified 06/02/22 12:30 Review of Systems Review of Systems: All systems reviewed & are unremarkable except as noted in HPI and below Constitutional: Constitutional: Reports no additional constitutional complaints Eyes: Eyes: Reports no additional eye complaints ENT: Reports system reviewed and no additional complaints, except as documented Cardiovascular: Cardiovascular: Reports no additional cardiovascular complaints Respiratory: Respiratory: Reports no additional respiratory complaints Gastrointestinal: Gastrointestinal: Reports no additional gastrointestinal complaints Genitourinary: Genitourinary: Reports no additional male genitourinary complaints Musculoskeletal: Musculoskeletal: Reports no additional musculoskeletal complaints Integumentary/Breasts: Skin/Breast: Reports system reviewed and no additional complaints, except as docu Neurologic: Reports system reviewed and no additional complaints, except as documented Psychiatric: Psychiatric: Reports no additional psychiatric complaints Endocrine: Endocrine: Reports no additional endocrine complaints Hematologic/Lymphatic: Hematologic/Lymphatic: Reports no additional hematologic/lymphatic complaints Allergic/Immunologic: Allergic/Immunologic: Reports no additional allergic/immunologic complaints PMFSH Past Medical History Medical History No significant past medical history Surgical History Surgical History History of appendectomy Family History Family History Father Throat cancer Social History Social History Smoking status: Never smoker Tobacco type: e-cigarettes/vaping Second hand tobacco smoke exposure: No Alcohol intake: unknown Alcohol use details: beer at times Substance use: unknown Gender identity (if verbalized by the patient): Male Sexual Orientation (if Verbalized by the Patient): Straight or Heterosexual Spiritual care concerns: No Exam Const: General: healthy appearing Nutritional Appearance: well nourished Orientation/consciousness: patient oriented x3 HENMT: Head: normal to inspection Ears: external ears normal Face/Nose/Sinus: Normal external nose present Eyes: Conjunctivae: conjunctivae normal Pupils: Equal, round and reactive pupils present EOM: EOMs intact bilaterally Neck: Neck: normal visual inspection Chest: Chest palpation & inspection: normal inspection of the chest Resp: Effort & Inspection: normal respiratory effort and not labored Auscultation: clear to auscultation bilaterally and no crackles Cardio: Rate: regular rate Rhythm: regular rhythm Heart sounds: no murmurs GI: Inspection: non-distended GI Palp: Yes Soft to palpation, Yes Tenderness to palpation present (GI) ( left flank), No Guarding due to palpation present (GI), No Rigid due to palpation, No Hernia present, No Palpable mass present and No Rebound tenderness present Auscultation: normal bowel sounds :
[2024-03-08 16:28] LABS: Basophils Absolute Auto 0.05 K/mm3 (0.00-0.10); Basophils Percent Auto 0.6 % (0.0-1.0); Eosinophils Absolute Auto 0.28 K/mm3 (0.02-0.50); Eosinophils Percent Auto 3.1 % (1.0-6.0); Hematocrit 46.6 % (40.0-54.0); Immature Granulocyte Absolute 0.02 K/mm3 (0.00-0.00); Immature Granulocyte Percent A 0.2 % (0.0-0.0); Lymphocytes Absolute Auto 2.41 K/mm3 (1.10-4.50); Lymphocytes Percent Auto 26.8 % (18.0-42.0); Mean Corpuscular HGB Conc 34.3 g/dL (32-36); Mean Corpuscular Hemoglobin 30.7 pg (27.0-31.0); Mean Corpuscular Volume 89.4 fL (78.0-102.0); Mean Platelet Volume 10.1 fl (8.7-11.0); Monocytes Absolute Auto 0.69 K/mm3 (0.10-0.90); Monocytes Percent Auto 7.7 % (2.0-11.0); Neutrophils Absolute Auto 5.53 K/mm3 (1.70-7.20); Neutrophils Percent Auto 61.6 % (50.0-70.0); Platelet Count Result 296 K/mm3 (150-420); Red Blood Count 5.21 M/mm3 (4.70-6.10); Red Cell Distribution Width 12.8 % (11.6-14.4)
[2024-03-08 16:32] LABS: Add Urine Microscopic? NO; Appearance Urine Clear (Clear); Bilirubin Urine Negative (Negative); Blood Urine Negative (Negative); Color Urine Yellow (Yellow); Glucose Urine UA Negative (Negative); Ketones Urine Negative (Negative); Leukocyte Esterase Ur Negative LEU/UL (Negative); Nitrate Urine Negative (Negative); Protein Urine Negative (Negative); Specific Grav Ur >= 1.030 (1.010-1.020)
[2024-03-08] MEDS: SODIUM CHLORIDE 0.9% IV 1,000 ML 999 ML IV CONT (16:44)
[2024-03-08 16:47] LABS: Alanine Aminotransferase 51 U/L (16-63); Albumin Level 4.2 g/dL (3.4-5.0); Alkaline Phosphatase 66 U/L (46-116); Anion Gap 8 mmol/L (4-12); Aspartate Amino Transferase 21 U/L (15-37); Bilirubin,Total 0.5 mg/dL (0.00-1.00); Blood Urea Nitrogen 10 mg/dL (7-18); Calcium 9.2 mg/dL (8.5-10.1); Carbon Dioxide 31 mmol/L (21-32); Chloride 101 mmol/L (98-108); Estimated CRCL calculation 98 ml/min; Estimated Glomerular Filt Rate > 60; Glucose 102 mg/dL (70-99); Lipase 26 U/L (16-77); Osmolality Calculated 289 mOsm/kg (285-295); Potassium 3.4 mmol/L (3.5-5.1); Sodium 140 mmol/L (136-145); Total Protein 7.6 g/dL (6.4-8.2)
[2024-03-08] MEDS: KETOROLAC 30 MG/ML VIAL (*BKC) IV PUSH (16:47)
[2024-03-08 17:25] VITALS: BP 148/87; PULSE 78; RESP 20; TEMP 36.8; O2SAT 98
[2024-03-08] MEDS: POTASSIUM CHLORIDE 20 MEQ ER TABLET PO (17:25)
== END 2024-03-08 17:25 | disposition home or self-care (01) ==
PROVIDERS: Emergency Provider Emergency Medicine; PCP Family Medicine
DX: S39.012A Strain of muscle, fascia and tendon of lower back, initial encounter (principal); X58.XXXA Exposure to other specified factors, initial encounter
CPT/HCPCS: 36415; 74176; 80053; 81003; 83690; 85025; 96361; 96374; 99284; A9270; J1885; J7030

== ENCOUNTER 2025-05-18 18:08 | Emergency (ER) | payer SELFPAY ==
--- NOTE | ~2025-05-18 | CT_ITS ---
EXAM/PROCEDURE: CT soft tissue neck w con HISTORY: right peritonsillar abscess/swelling COMPARISON: 01/17/2021 TECHNIQUE: IV contrast enhanced soft tissue neck CT performed FINDINGS: Multiple edematous palatine tonsillar changes noted. No discrete mass or drainable fluid collection/abscess identified. Visualized portion of the intracranial contents and upper chest appear normal. The thyroid appears stable including subcentimeter left lobe thyroid nodule. Vascular structures appear patent. Bones appear intact. IMPRESSION: Mild cervical lymphadenopathy with no drainable abscess or discrete mass. NOTE: Preliminary radiology report provided by [facility] radiologist. Reviewed, dictated and finalized at location A. MEDICAL TECHNOLOGIST
[2025-05-18 18:08] VITALS: BP 157/107; PULSE 100; RESP 17; TEMP 36.7; O2SAT 98
--- NOTE | 2025-05-18 18:09 | ED_ITS ---
HPI - SOB/Dyspnea General Chief Complaint: Upper Respiratory Infection Stated Complaint: body aches, cough Time Seen by Provider: 05/18/25 18:09 Source: patient Mode of arrival: ambulatory Limitations: no limitations History of Present Illness HPI Narrative: Patient is a 40-year-old male with a sore throat and malaise and congestion. Patient has had some low oxygen values less than 90 on a few occasions at home. He is having throat fullness sensation. Patient said his voice has changed somewhat and his taste in his mouth is different. MD elicited complaint: shortness of breath Pertinent past history: other (None) Onset (ago): day(s) (3) Context: other (Patient having a throat fullness and sore throat with malaise and upper respiratory complaints for the past 3 days) Timing: constant Severity: moderate Exacerbating factors: nothing Relieving factors: nothing Known history of: other (None) Associated symptoms: denies other symptoms Treatment prior to arrival: none Related Data Home oxygen amount: none Allergies Allergy/AdvReac Type Severity Reaction Status Date / Time Penicillins Allergy Mild Unknown Verified 05/18/25 18:10 Review of Systems 2 Review of Systems: All systems reviewed & are unremarkable except as noted in HPI and below Constitutional: Constitutional: Reports no additional constitutional complaints Eyes: Eyes: Reports no additional eye complaints ENT: Reports system reviewed and no additional complaints, except as documented Cardiovascular: Cardiovascular: Reports no additional cardiovascular complaints Respiratory: Respiratory: Reports no additional respiratory complaints Gastrointestinal: Gastrointestinal: Reports no additional gastrointestinal complaints Genitourinary: Genitourinary: Reports no additional male genitourinary complaints Musculoskeletal: Musculoskeletal: Reports no additional musculoskeletal complaints Integumentary/Breasts: Skin/Breast: Reports system reviewed and no additional complaints, except as docu Neurologic: Reports system reviewed and no additional complaints, except as documented Psychiatric: Psychiatric: Reports no additional psychiatric complaints Endocrine: Endocrine: Reports no additional endocrine complaints Hematologic/Lymphatic: Hematologic/Lymphatic: Reports no additional hematologic/lymphatic complaints Allergic/Immunologic: Allergic/Immunologic: Reports no additional allergic/immunologic complaints PMFSH Past Medical History Medical History No significant past medical history Surgical History Surgical History History of appendectomy Family History Family History Father Throat cancer Social History Social History Tobacco type: e-cigarettes/vaping Second hand tobacco smoke exposure: No Alcohol intake: unknown Alcohol use details: beer at times Substance use: unknown Gender identity (if verbalized by the patient): Male Sexual Orientation (if Verbalized by the Patient): Straight or Heterosexual Spiritual care concerns: No Exam 2 Const: General: healthy appearing Nutritional Appearance: well nourished Orientation/consciousness: patient oriented x3 HENMT: Head: normal to inspection Ears: external ears normal F matti/Nose/Sinus: Normal external nose present Throat: posterior oropharynx abnormal and uvula not midline Other: Right worse than left enlargement of tonsillar area within irregularity to the right side and ulceration appreciated; pus appreciated; uvula to the right; bright red erythema of the posterior pharynx Eyes: Conjunctivae: conjunctivae normal Pupils: Equal, round and reactive pupils present EOM: EOMs intact bilaterally Neck: Neck: normal visual inspection Chest: Chest palpation & inspection: normal inspection of the chest Resp: Effort & Inspection: normal respiratory effort and not labored A uscultation: clear to auscultation bilaterally and no crackles Cardio: Rate: regular rate Rhythm: regular rhythm Heart sounds: no murmurs GI: Inspection: non-distended GI Palp: Yes Soft to palpation and No Tenderness to palpation present (GI) Auscultation: normal bowel sounds : General: Yes bladder normal to palpation Back/Spine/Pelvis: Back: no CVA tenderness Skin: General skin exam: normal color Rashes: no rashes Wounds: no wounds Neuro: General: patient oriented x3, moves all extremities and no meningeal signs Extrem: General: normal to inspection Psych: Mental Status: mental status grossly normal Affect: normal affect Attitude: cooperative Course Vital Signs Vital signs: Vital Signs Temperature 36.7 C 05/18/25 18:08 Pulse Rate 100 05/18/25 18:08 Respiratory Rate 17 05/18/25 18:08 Blood Pressure 157/107 H 05/18/25 18:08 Pulse Oximetry 98 05/18/25 18:08 Oxygen Delivery Room Air 05/18/25 18:08 Temperature 36.7 C 05/18/25 18:08 Pulse Rate 100 05/18/25 18:08 Respiratory Rate 17 05/18/25 18:08 Blood Pressure 157/107 H 05/18/25 18:08 Pulse Oximetry 98 05/18/25 18:08 Oxygen Delivery Room Air 05/18/25 18:08 MDM - SOB/Dyspnea MDM Narrative Medical decision making narrative: Patient is a 40-year-old male with a sore throat on the right worse than left for the past [address] scan of the soft tissue neck for abscess. Clindamycin and dexamethasone IV. CT scan was negative for peritonsillar abscess. He will be discharged with clindamycin and prednisone. The lymph node and the thyroid nodule was suggested follow-up with the primary doctor. Lab Data Attestation: I reviewed the patient's lab results. 05/18/25 19:52 05/18/25 19:52 Labs: Lab Results 05/18/25 05/18/25 05/18/25 Range/Units 18:16 19:17 19:52 WBC 14.1 H (4.8-10.8) K/mm3 RBC 5.44 (4.70-6.10) M/mm3 Hgb 16.4 (14.0-18.0) g/dL Hct 50.5 (40.0-54.0) % MCV 92.8 (78.0-102.0) fL MCH 30.1 (27.0-31.0) pg MCHC 32.5 (32-36) g/dL RDW 12.9 (11.6-14.4) % Plt Count 276 (150-420) K/mm3 MPV 10.5 (8.7-11.0) fl Immature Gran % (Auto) 0.4 H (0.0-0.0) % Neut % (Auto) 73.3 H (50.0-70.0) % Lymph % (Auto) 16.6 L (18.0-42.0) % [place] % (Auto) 7.9 (2.0-11.0) % Eos % (Auto) 1.3 (1.0-6.0) % Baso % (Auto) 0.5 (0.0-1.0) % Lymph # (Auto) 2.35 (1.10-4.50) K/mm3 [place] # (Auto) 1.11 H (0.10-0.90) K/mm3 Eos # (Auto) 0.19 (0.02-0.50) K/mm3 Baso # (Auto) 0.07 (0.00-0.10) K/mm3 Abs Immat Gran (auto) 0.05 H (0.00-0.00) K/mm3 Absolute Neuts (auto) 10.35 H (1.70-7.20) K/mm3 Absolute Nucleated RBC 0.00 (0.00-0.00) K/mm3 Nucleated RBC % 0.0 (0-0.0) % PT 10.4 (9.50-12.1) Seconds INR 0.9 APTT 26.3 (23.9-30.70) Sec Sodium 141 (137-145) mmol/L Potassium 3.4 (3.4-5.0) mmol/L Chloride 103 (98-107) mmol/L Carbon Dioxide 31 H (22-30) mmol/L Anion Gap 7 (4-12) mmol/L BUN 8 L (9-20) mg/dL Creatinine 0.94 (0.7-1.3) mg/dL Estim Creat Clear Calc 95 ml/min Estimated GFR > 60 (59 - ) Glucose 110 (65-110) mg/dL Calculated Osmolality 291 (285-295) mOsm/kg Calcium 9.5 (8.4-10.2) mg/dL Total Bilirubin 1.3 (0.2-1.3) mg/dL AST 32 (17-59) U/L ALT 43 (6-50) U/L Alkaline Phosphatase 58 (38-126) U/L C-Reactive Protein 4.1 H (<1.0) mg/dL Total Protein 7.5 (6.3-8.2) g/dL Albumin 4.5 (3.5-5.1) g/dL Influenza A (RT-PCR) Negative (Negative) Influenza B (RT-PCR) Negative (Negative) RSV (RT-PCR) Negative (Negative) SARS-CoV-2 RNA (RT-PCR) Negative (Negative) Group A Strep (PCR) Detected A (Negative) Imaging Data Attestation: I personally reviewed and interpreted this imaging study as follows: Radiologist's impression: CT scan of the soft tissue neck with contrast shows edema tonsil bilaterally correlating with tonsillitis but no peritonsillar abscess; enlarged right lymph node unchanged and a left thyroid nodule appears again at this time (patient will need outpatient follow-up with his primary doctor for the thyroid nodule and the lymph node) Discharge Plan Discharge Clinical Impression: Acute infective pharyngitis due to Streptococcus species Acute tonsillitis Qualifiers: Pharyngitis/tonsillitis etiology: other specified organisms Qualified Code(s): J03.80 - Acute tonsillitis due to other specified organisms Patient Disposition: Home Condition: Stable Instructions: Antibiotic Form, Strep Throat (DC), Tonsillitis (ED) Additional Instructions: Please follow-up with the primary doctor in the next week. Take all antibiotics and steroids given. You have a lymph node in the neck and a thyroid nodule that need to be followed up with the primary doctor. Patient Language: Danish Prescriptions: New prednisone 20 mg tablet 40 mg PO DAILY 3 Days Qty: 6 0RF clindamycin HCl [Cleocin HCl] 300 mg capsule 300 mg PO TID 10 Days Qty: 30 0RF No Action tramadol 50 mg tablet 50 mg PO Q12H PRN (Reason: pain) Qty: 10 0RF Follow-up/Referrals: Brandon Hartmann MD [Primary Care Provider, Internal Medicine] Time of Disposition: 21:16
--- NOTE | 2025-05-18 18:18 | PC.NURSE ---
Covid culture taken to lab
[2025-05-18 18:58] LABS: Influenza A QL RT-PCR Negative (Negative); Influenza B QL RT-PCR Negative (Negative); RSV RNA, RT-PCR Negative (Negative); SARS-CoV-2 RNA PCR Negative (Negative)
[2025-05-18] MEDS: dexAMETHasone SOD PHOS INJ 10 MG/ML 1 ML VIAL IV PUSH (19:42)
[2025-05-18 19:46] LABS: Strep Group A RT-PCR DETECTED (Negative)
[2025-05-18 20:01] LABS: Hematocrit 50.5 % (40.0-54.0); Hemoglobin 16.4 g/dL (14.0-18.0); Immature Granulocyte Percent A 0.4 % (0.0-0.0); Lymphocytes Absolute Auto 2.35 K/mm3 (1.10-4.50); Mean Corpuscular HGB Conc 32.5 g/dL (32-36); Mean Corpuscular Hemoglobin 30.1 pg (27.0-31.0); Mean Corpuscular Volume 92.8 fL (78.0-102.0); Nucleated Red Blood Cells Absolute Auto 0.00 K/mm3 (0.00-0.00); Nucleated Red Blood Cells Perc 0.0 % (0-0.0); Platelet Count Result 276 K/mm3 (150-420); Red Blood Count 5.44 M/mm3 (4.70-6.10); White Blood Count 14.1 K/mm3 (4.8-10.8)
[2025-05-18] MEDS: CLINDAMYCIN 600 MG/D5W 50 ML 600 MG/50 ML PIGGYBACK 100 MG IVPB (20:12)
[2025-05-18 20:15] LABS: Alanine Aminotransferase 43 U/L (6-50); Albumin Level 4.5 g/dL (3.5-5.1); Alkaline Phosphatase 58 U/L (38-126); Anion Gap 7 mmol/L (4-12); Aspartate Amino Transferase 32 U/L (17-59); Bilirubin,Total 1.3 mg/dL (0.2-1.3); Blood Urea Nitrogen 8 mg/dL (9-20); CRP 4.1 mg/dL (<1.0); Calcium 9.5 mg/dL (8.4-10.2); Carbon Dioxide 31 mmol/L (22-30); Chloride 103 mmol/L (98-107); Estimated CRCL calculation 95 ml/min; Estimated Glomerular Filt Rate > 60; Glucose 110 mg/dL (65-110); Osmolality Calculated 291 mOsm/kg (285-295); Potassium 3.4 mmol/L (3.4-5.0); Sodium 141 mmol/L (137-145); Total Protein 7.5 g/dL (6.3-8.2)
[2025-05-18 20:16] LABS: INR 0.9; Partial Thromboplastin Time 26.3 Sec (23.9-30.70); Prothrombin Time 10.4 Seconds (9.50-12.1)
[2025-05-18 21:24] VITALS: BP 153/85; PULSE 97; RESP 18; TEMP 36.7; O2SAT 93
--- NOTE | 2025-05-21 12:59 | PC.NURSE ---
blood, preliminary no growth
--- NOTE | 2025-05-23 15:18 | PC.NURSE ---
blood , preliminary, no growth
--- NOTE | 2025-05-26 12:48 | PC.NURSE ---
FINAL BLOOD CULTURE NO AEROBIC OR ANAEROBIC GROWTH IN FIVE DAYS
== END 2025-05-18 21:24 | disposition home or self-care (01) ==
PROVIDERS: Emergency Provider Emergency Medicine; PCP Family Medicine
DX: J02.0 Streptococcal pharyngitis (principal); Z20.822 Contact with and (suspected) exposure to COVID-19
CPT/HCPCS: 36415; 70491; 80053; 85025; 85610; 85730; 86140; 87637; 87651; 96365; 96375; 99284; J1100; Q9967

== ENCOUNTER 2025-05-27 13:29 | Emergency (ER) | payer SELFPAY ==
--- NOTE | ~2025-05-27 | XR_ITS ---
EXAMINATION: XR foot RT min 3V, XR ankle RT min 3V DATE: 05/27/2025 13:55 INDICATION: Right foot and ankle twisting injury TECHNIQUE: 1. Anteroposterior, mortise, additional oblique and lateral view of the right ankle were obtained. 2. Dorsoplantar, two oblique and lateral views of the right foot were obtained. COMPARISON: None. FINDINGS: Alignment of the right foot and ankle is normal. No fracture or osteochondral lesion. Joint spaces are well maintained. Small Achilles calcaneal spur. No ankle joint effusion. The soft tissues are unremarkable. IMPRESSION: 1. Small Achilles calcaneal spur. No acute osseous abnormality. Reviewed, dictated and finalized at location A. LE MAKER IMPRESSION: 1. Small Achilles calcaneal spur. No acute osseous abnormality.
[2025-05-27 13:29] VITALS: BP 160/93; PULSE 91; RESP 16; TEMP 36.6; O2SAT 97
--- NOTE | 2025-05-27 14:13 | ED_ITS ---
HPI - Extremity Injury (Lower) General Chief Complaint: Extremity Injury, Lower Stated Complaint: right ankle injury Time Seen by Provider: 05/27/25 13:43 History of Present Illness HPI Narrative: A 40-year-old white male reports he twisted his right foot and ankle when walking on uneven ground about 4 days ago. He reports it is still swollen, still bruised looking, still painful when he tries to walk on it. No other injury Related Data Home Medications ?Medication ?Instructions ?Recorded ?Confirmed ?Last Taken ?Type No Home Medications 05/27/25 05/27/25 U nknown History Allergies Allergy/AdvReac Type Severity Reaction Status Date / Time Penicillins Allergy Mild Unknown Verified 05/27/25 13:36 Review of Systems Review of Systems: ROS is negative except as in HPI PMFSH Past Medical History Medical History No significant past medical history Surgical History Surgical History History of appendectomy Family History Family History Father Throat cancer Social History Social History Smoking status: Never smoker Tobacco type: e-cigarettes/vaping Second hand tobacco smoke exposure: No Alcohol intake: unknown Alcohol use details: beer at times Substance use: unknown Gender identity (if verbalized by the patient): Male Sexual Orientation (if Verbalized by the Patient): Straight or Heterosexual Spiritual care concerns: No Exam Narrative: GENERAL: Well-appearing, well-nourished, and in no acute distress. HEAD: Normocephalic, atraumatic. EYES: PERRLA and EOMI. ENT: Nares clear, no rhinorrhea or epistaxis.? Mucous membranes moist. NECK: Supple. CHEST: No respiratory distress. EXTREMITIES: Normal range of motion.? No edema except his left ankle and foot is diffusely swollen, there is some diffuse ecchymosis medial and lateral malleolus as well as dorsal lateral foot. There is marked tenderness on palpation of both anterior and posterior talofibular ligaments and anterior and posterior talotibial ligament with the ankle feeling stable however marked pain on range of motion, there is diffuse pain on palpation of the mid and lateral foot. No pain on palpation of the distal metatarsals, and toes. Calcaneus is also nontender SKIN: Warm, dry, no rash. NEURO: No focal deficits.? Alert and oriented x3. PSYCH: Normal mood and affect. Course Course Emergency Course: Differential diagnosis includes but is not limited to ankle and foot sprain or fracture X-rays of right foot and ankle are negative for fracture Air splint applied Given instructions Medical decision making complexity and risk low to moderate Vital Signs Vital signs: Vital Signs Temperature 36.6 C 05/27/25 13:29 Pulse Rate 91 05/27/25 13:29 Respiratory Rate 16 05/27/25 13:29 Blood Pressure 160/93 H 05/27/25 13:29 Pulse Oximetry 97 05/27/25 13:29 Oxygen Delivery Room Air 05/27/25 13:29 Temperature 36.6 C 05/27/25 13:29 Pulse Rate 91 05/27/25 13:29 Respiratory Rate 16 05/27/25 13:29 Blood Pressure 160/93 H 05/27/25 13:29 Pulse Oximetry 97 05/27/25 13:29 Oxygen Delivery Room Air 05/27/25 13:29 Discharge Plan Discharge Clinical Impression: Ankle sprain and strain Patient Disposition: Home Condition: Stable Instructions: Ankle Sprain (ED) Additional Instructions: elevate ice compress as needed Tylenol 650 mgh every 6 hrs as needed for pain Ibuprofen 600 mg every 6 hours as needed for pain use air splint crutches as needed minimize stairs follow up with Dr Hartmann in 1 weeks return to ed for [facility] Patient Language: Singaporean Prescriptions: No Action No Home Medications Follow-up/Referrals: Brandon Hartmann MD [Primary Care Provider, Internal Medicine] Time of Disposition: 14:25
== END 2025-05-27 14:28 | disposition home or self-care (01) ==
PROVIDERS: Emergency Provider Emergency Medicine; PCP Family Medicine
DX: S93.401A Sprain of unspecified ligament of right ankle, initial encounter (principal); S96.911A Strain of unspecified muscle and tendon at ankle and foot level, right foot, initial encounter; X50.0XXA Overexertion from strenuous movement or load, initial encounter
CPT/HCPCS: 29515; 73610; 73630; 99283; L4350